=== PATIENT | female | born 1980 | race African-American/Black ===

== ENCOUNTER 2016-11-18 19:53 | Observation (INO) | payer OTHER ==
[2016-04-30 12:30] VITALS: BP 141/90
[2016-11-18 20:33] LABS: BILIRUBIN,URINE NEGATIVE (NEG); GLUCOSE,URINE 250 mg/dL (NEG); NITRITE,URINE NEGATIVE (NEG); PROTEIN,URINE NEGATIVE (NEG-TRACE)
[2016-11-18 20:43] LABS: BACTERIA,URINE MODERATE /HPF (0-FEW); RBC,URINE 0 /HPF (0-2); SQUAMOUS EPITHELIAL CELL,UR OCC /LPF
[2016-11-18] MEDS ORDERED: HYDR-971 PO (21:58)
[2016-11-18] MEDS ORDERED: CYCL10TA2 PO (22:05)
== END 2016-11-18 21:04 | disposition home or self-care (01) ==
LOC: 3 SO LND 19:53
PROVIDERS: ADMIT Obstetrics & Gynecology; ATTEND Obstetrics & Gynecology
DX: O26.893 Other specified pregnancy related conditions, third trimester (principal); M54.9 Dorsalgia, unspecified; M53.3 Sacrococcygeal disorders, not elsewhere classified; W19.XXXA Unspecified fall, initial encounter; Y93.89 Activity, other specified; Y92.89 Other specified places as the place of occurrence of the external cause; Y99.8 Other external cause status; Z3A.35 35 weeks gestation of pregnancy
CPT/HCPCS: 81001; 87086; G0378; G0379; 59025

== ENCOUNTER 2016-11-18 21:17 | Emergency (ER) | payer OTHER ==
[2016-04-30 12:30] VITALS: BP 141/90
[~2016-11-18] VITALS: Ht 157.5 cm; Wt 57.6 kg
[2016-11-18] MEDS ORDERED: HYDR-971 PO (21:58)
--- NOTE | 2016-11-18 21:59 | PHYS DOC ---
Past Medical History Past Medical History: Depression, Other Additional Past Medical Histor: chronic R foot numbness, back pain Past Surgical History: No Surgical History Alcohol Use: Occasionally Drug Use: None Adult General Chief Complaint Chief Complaint: MECHANICAL FALL HPI HPI Patient is a 36 year old female with no significant medical history apart from sciatic pain who presents today complaining of coccyx pain after falling down. Patient is currently 35 weeks . She is a 5 para 3 with one miscarriage. She states she was going down some steps when she slid down the steps and fell down 5 steps, patient denies any loss of consciousness. She was evaluated at the OB floor and was cleared and sent to the ED. She states she takes Tylenol 3 for chronic sciatic pain and her FINANCIAL REPRESENTATIVE requested we give her anything to help with the pain. Patient denies any loss of bowel bladder function. Review of Systems Review of Systems Constitutional: Denies fever or chills [] Eyes: Denies change in visual acuity, redness, or eye pain [] HENT: Denies nasal congestion or sore throat [] Respiratory: Denies cough or shortness of breath [] Cardiovascular: No additional information not addressed in HPI [] GI: : Denies dysuria or hematuria [] Musculoskeletal: low back pain Integument: Denies rash or skin lesions [] Neurologic: Denies headache, focal weakness or sensory changes [] Endocrine: Denies polyuria or polydipsia [] Current Medications Current Medications Current Medications Medications (Trade) Dose Ordered Sig/Anushka Start Time Stop Time Status Last Admin Dose Admin Acetaminophen/ Hydrocodone Bitart (Lortab 5/325) 1 tab 1X ONCE 11/18/16 22:00 11/18/16 22:01 DC 11/18/16 21:54 1 TAB Cyclobenzaprine HCl (Flexeril) 10 mg 1X ONCE 11/18/16 22:00 11/18/16 22:01 DC 11/18/16 21:54 10 MG Allergies Allergies Allergies Coded Allergies Type Severity Reaction Last Updated Verified corn Allergy Severe 11/18/16 Yes peanut Allergy Severe 01/27/15 Yes shellfish derived Allergy Severe 01/27/15 Yes tomato Allergy Severe 11/18/16 Yes wheat Allergy Severe 11/18/16 Yes Physical Exam Physical Exam Constitutional: Well developed, well nourished, no acute distress, non-toxic appearance. [] HENT: Normocephalic, atraumatic, bilateral external ears normal, oropharynx moist, no oral exudates, nose normal. [] Eyes: PERRLA, EOMI, conjunctiva normal, no discharge. [] Neck: Normal range of motion, no tenderness, supple, no stridor. [] Cardiovascular:Heart rate regular rhythm, no murmur [] Lungs & Thorax: Bilateral breath sounds clear to auscultation [] Abdomen: Gravid abdomen. Bowel sounds normal, soft, no tenderness, no masses, no pulsatile masses. [] Skin: Warm, dry, no erythema, no rash. [] Back: Tenderness of the coccyx, no CVA tenderness. [] Extremities: No tenderness, no cyanosis, no clubbing, ROM intact, no edema. [] Neurologic: Alert and oriented X 3, normal motor function, normal sensory function, no focal deficits noted. [] Psychologic: Affect normal, judgement normal, mood normal. [] Current Patient Data Vital Signs Vital Signs Date Time Temp Pulse Resp B/P (MAP) Pulse Ox O2 Delivery O2 Flow Rate FiO2 11/18/16 21:54 18 Room Air 11/18/16 21:28 98.1 74 100 98.1 EKG EKG [] Radiology/Procedures Radiology/Procedures [] Course & Med Decision Making Course & Med Decision Making Pertinent Labs and Imaging studies reviewed. (See chart for details) This is a 35 week female patient who fell down 5 steps today coming to the ED to be evaluated. She was seen at the OB floor and was discharged To the ED. She states her FINANCIAL REPRESENTATIVE is aware. She states her FINANCIAL REPRESENTATIVE requested we give her something strong for pain. She already takes Tylenol 3 for chronic sciatic pain. She is a 5 para 3. She had one miscarriage. We talked about x- rays. The patient is and was not willing to expose the child to radiation. I talked to patient about narcotics and muscle relaxers. She was agreeable to taking hydrocodone which I wrote her prescription for. I also gave her instructions to buy a donut cushion to sit on. Recommended she follows up with her FINANCIAL REPRESENTATIVE next week. Dragon Disclaimer Dragon Disclaimer This electronic medical record was generated, in whole or in part, using a voice recognition dictation system. Departure Departure Impression: Primary Impression: Lumbar contusion Additional Impressions: Low back pain Fall down steps Disposition: 01 HOME, SELF-CARE Condition: STABLE Referrals: UNKNOWN PCP NAME (PCP) Follow-up with your FINANCIAL REPRESENTATIVE as soon as possible Patient Instructions: Back Pain, Adult, [id number], Fall Prevention and Home Safety Additional Instructions: You were seen for lumbar contusion after falling down some steps with back pain. Buy a donut cushion at any drugs store. You can sit on it, it will provide comfort to your back/buttocks. You can apply heat to ice to your back. Follow-up with your FINANCIAL REPRESENTATIVE on Tuesday next week. Scripts Cyclobenzaprine Hcl (CYCLOBENZAPRINE HCL) 10 Mg Tablet 1 TAB PO TID, #30 TAB Prov: KAROLINE SILVESTRE APRN 11/18/16 Hydrocodone/Apap 5-325 (NORCO 5-325 TABLET) 1 Each Tablet 1 TAB PO Q4-6HRS Y for PAIN, #12 TAB Prov: KAROLINE SILVESTRE APRN 11/18/16 Problem Qualifiers Primary Impression: Lumbar contusion Encounter type: initial encounter Qualified Codes: S30.0XXA - Contusion of lower back and pelvis, initial encounter Additional Impressions: Low back pain Chronicity: acute Back pain laterality: bilateral Sciatica presence: without sciatica Qualified Codes: M54.5 - Low back pain Fall down steps Encounter type: initial encounter Qualified Codes: W10.8XXA - Fall (on) ( from) other stairs and steps, initial encounter KAROLINE SILVESTRE APRN Nov 18, 2016 21:59
[2016-11-18] MEDS ORDERED: HYDROcodone/APAP 5/325MG 1 TAB TABLET PO ONE (22:00)
[2016-11-18] MEDS ORDERED: CYCLOBENZAPRINE 10 MG TABLET. PO ONE (22:00)
[2016-11-18] MEDS ORDERED: CYCL10TA2 PO (22:05)
== END 2016-11-18 22:10 | disposition home or self-care (01) ==
LOC: ER 21:17
DX: O9A.213 Injury, poisoning and certain other consequences of external causes complicating pregnancy, third trimester (principal); S30.0XXA Contusion of lower back and pelvis, initial encounter; F32.9 Major depressive disorder, single episode, unspecified; Z91.018 Allergy to other foods; Z3A.35 35 weeks gestation of pregnancy; Z91.013 Allergy to seafood; Z91.010 Allergy to peanuts; W10.9XXA Fall (on) (from) unspecified stairs and steps, initial encounter; Y93.89 Activity, other specified; Y92.89 Other specified places as the place of occurrence of the external cause; Y99.8 Other external cause status
CPT/HCPCS: 99283